=== PATIENT | female | born 2000 | race Hispanic/Latino ===

== ENCOUNTER 2020-06-29 13:45 | Inpatient (IN) | payer OTHER ==
[~2020-06-29] VITALS: Ht 175.3 cm; Wt 52.2 kg
[2020-06-29 14:06] LABS: BASOPHILS # (AUTO) 0.1 (0.0-0.1); BASOPHILS % 0.6 % (0.0-1.0); EOSINOPHILS % 0.1 % (0.0-6.0); HEMATOCRIT 28.4 % (34.2-44.1); HEMOGLOBIN 8.4 g/dL (12.0-16.0); LYMPHOCYTES % 14.6 % (18.0-39.1); MEAN CORPUSCULAR HEMOGLOBIN 18.6 pg (28-32); MEAN CORPUSCULAR HGB CONC 29.6 g/dL (31-35); MEAN CORPUSCULAR VOLUME 62.8 fL (81-99); MONOCYTES # (AUTO) 0.8 (0.2-0.8); MONOCYTES % 5.6 % (4.4-11.3); NEUTROPHILS # (AUTO) 10.9 (2.1-6.9); NEUTROPHILS % 78.7 % (38.7-80.0); PLATELET COUNT 445 x10e3/uL (140-360); RED BLOOD COUNT 4.52 x10e6/uL (3.6-5.1); RED CELL DISTRIBUTION WIDTH 20.2 % (11.7-14.4)
[2020-06-29 14:40] LABS: ALANINE AMINOTRANSFERASE 12 IU/L (0-55); ALBUMIN/GLOBULIN RATIO 0.7 (0.8-2.0); ALKALINE PHOSPHATASE 85 IU/L (40-150); BLOOD UREA NITROGEN 7 mg/dL (7-26); BUN/CREATININE RATIO 12 (6-25); CALCIUM 8.8 mg/dL (8.4-10.2); CARBON DIOXIDE 24 mmol/L (22-29); CHLORIDE 102 mmol/L (98-107); CREATININE, SERUM 0.58 mg/dL (0.57-1.11); EST GLOMERULAR FILTRATION RATE > 60 ML/MIN (60-); GLUCOSE 77 mg/dL (74-118); SODIUM 133 mmol/L (136-145)
[2020-06-29 15:23] LABS: COLOR,URINE YELLOW (YELLOW)
[2020-06-29 15:24] LABS: CLARITY,URINE HAZY (CLEAR); KETONES,URINE 2+ (NEGATIVE); LEUKOCYTE ESTERASE ,URINE MODERATE (NEGATIVE); NITRITE,URINE POSITIVE (NEGATIVE); PROTEIN,URINE DIPSTICK 1+ (NEGATIVE); URINE UROBILINOGEN 0.2 mg/dL (0.2 - 1)
[2020-06-29 15:34] LABS: BACTERIA,URINE MANY /HPF; EPITHELIAL CELLS,URINE FEW /LPF; WBC,URINE (MAN) >50 /HPF (0-5)
[2020-06-29] MEDS: SODIUM CHLORIDE 0.9% 1000ML 1,000 ML IV SCH ×2 (16:48→17:53)
[2020-06-29] MEDS: ACETAMINOPHEN 325 MG TAB PO PRN ×2 (16:48→22:50)
[2020-06-29] MEDS: CEFTRIAXONE SOD 1 GM/NS 50 ML 50 ML IV SCH (16:48)
[2020-06-29 18:18] VITALS: BP 94/71
[2020-06-29 18:23] VITALS: BP 94/71
[2020-06-29 18:35] VITALS: BP 94/71
[2020-06-29 19:00] VITALS: BP 98/62
[2020-06-29 21:00] VITALS: BP 98/62
[2020-06-30] VITALS (12 sets, daily range): BP systolic 85–112; BP diastolic 43–78
[2020-06-30] MEDS: ONDANSETRON HCL INJ 2MG/ML 2ML 2 MG/ML VIAL IV PRN ×3 (01:19→20:25)
[2020-06-30] MEDS ORDERED: SODIUM CHLORIDE 0.9% 500ML 500 ML IV ONE (04:45)
[2020-06-30 06:10] LABS: BASOPHILS % 0.2 % (0.0-1.0); HEMATOCRIT 24.4 % (34.2-44.1); HEMOGLOBIN 7.4 g/dL (12.0-16.0); LYMPHOCYTES # (AUTO) 0.8 (1.0-3.2); LYMPHOCYTES % 5.6 % (18.0-39.1); MEAN CORPUSCULAR HEMOGLOBIN 19.1 pg (28-32); MEAN CORPUSCULAR HGB CONC 30.3 g/dL (31-35); MONOCYTES # (AUTO) 0.9 (0.2-0.8); MONOCYTES % 6.3 % (4.4-11.3); NEUTROPHILS # (AUTO) 12.4 (2.1-6.9); NEUTROPHILS % 87.5 % (38.7-80.0); PLATELET COUNT 381 x10e3/uL (140-360); RED BLOOD COUNT 3.87 x10e6/uL (3.6-5.1); RED CELL DISTRIBUTION WIDTH 19.5 % (11.7-14.4)
[2020-06-30] MEDS: MEPERIDINE HCL INJ 25 MG/ML VIAL IV PRN ×3 (06:12→20:38)
[2020-06-30 06:32] LABS: ALANINE AMINOTRANSFERASE 10 IU/L (0-55); ALBUMIN 2.3 g/dL (3.5-5.0); ALBUMIN/GLOBULIN RATIO 0.6 (0.8-2.0); ALKALINE PHOSPHATASE 82 IU/L (40-150); ANION GAP 11.3 mmol/L (8-16); BLOOD UREA NITROGEN < 5 mg/dL (7-26); CARBON DIOXIDE 19 mmol/L (22-29); CHLORIDE 107 mmol/L (98-107); CREATININE, SERUM 0.56 mg/dL (0.57-1.11); EST GLOMERULAR FILTRATION RATE > 60 ML/MIN (60-); GLUCOSE 83 mg/dL (74-118); POTASSIUM 3.3 mmol/L (3.5-5.1); SODIUM 134 mmol/L (136-145)
[2020-06-30 06:33] LABS: BUN/CREATININE RATIO 9 (6-25)
[2020-06-30] MEDS ORDERED: GENTAMICIN SULFATE 100 MG in SODIUM CHLORIDE 0.9% 100 ML 100 ML IV ONE (07:15)
[2020-06-30] MEDS: SODIUM CHLORIDE 0.9% 1000ML 1,000 ML IV SCH ×12 (10:20→20:30)
[2020-06-30] MEDS: TRAMADOL HCL 50 MG TAB PO PRN (11:20)
[2020-06-30] MEDS ORDERED: POTASSIUM CHLORIDE 10MEQ EA PO ONE (11:30)
[2020-06-30 11:44] LABS: ELLIPTOCYTE, RBC SLIGHT; MICROCYTOSIS MODERATE
[2020-06-30 11:45] LABS: HYPOCHROMASIA SLIGHT
[2020-06-30 11:46] LABS: PLATELET ESTIMATE ADEQUATE; PLATELET MORPHOLOGY COMMENT FEW LARGE; RBC MORPHOLOGY COMMENT ABNORMAL
[2020-06-30] MEDS: GENTAMICIN 80MG/NS 100 ML 100 ML IV SCH ×2 (15:06→21:07)
[2020-06-30] MEDS ORDERED: SODIUM CHLORIDE 0.9% 1000ML 2,000 ML ONE (15:51)
[2020-06-30] MEDS: ACETAMINOPHEN 325 MG TAB PO PRN (16:00)
[2020-06-30] MEDS ORDERED: SODIUM CHLORIDE 0.9% 1000ML 1,000 ML IV SCH (16:30)
[2020-06-30] MEDS: CEFTRIAXONE SOD 1 GM/NS 50 ML 50 ML IV SCH (18:29)
[2020-06-30 21:45] LABS: HIV 1&2 AB SCREEN NON-REACTIVE (NONREACTIVE)
[2020-07-01] VITALS (8 sets, daily range): BP systolic 95–110; BP diastolic 39–90
[2020-07-01] MEDS: SODIUM CHLORIDE 0.9% 1000ML 1,000 ML IV SCH ×2 (00:47→14:42)
[2020-07-01] MEDS: ONDANSETRON HCL INJ 2MG/ML 2ML 2 MG/ML VIAL IV PRN ×5 (00:48→23:40)
[2020-07-01] MEDS: MEPERIDINE HCL INJ 25 MG/ML VIAL IV PRN ×5 (00:48→23:40)
[2020-07-01] MEDS ORDERED: ACETAMINOPHEN 1000 MG/100 ML IV PRN (05:45)
[2020-07-01] MEDS ORDERED: ACETAMINOPHEN 1000 MG/100 ML 100 ML IV ONE (06:37)
[2020-07-01 06:43] LABS: BASOPHILS # (AUTO) 0.1 (0.0-0.1); BASOPHILS % 0.4 % (0.0-1.0); EOSINOPHILS % 0.1 % (0.0-6.0); LYMPHOCYTES # (AUTO) 1.4 (1.0-3.2); LYMPHOCYTES % 10.2 % (18.0-39.1); MEAN CORPUSCULAR HEMOGLOBIN 19.3 pg (28-32); MEAN CORPUSCULAR HGB CONC 30.6 g/dL (31-35); MEAN CORPUSCULAR VOLUME 63.3 fL (81-99); MONOCYTES # (AUTO) 1.1 (0.2-0.8); NEUTROPHILS # (AUTO) 10.8 (2.1-6.9); NEUTROPHILS % 80.9 % (38.7-80.0); PLATELET COUNT 344 x10e3/uL (140-360); RED BLOOD COUNT 3.62 x10e6/uL (3.6-5.1); RED CELL DISTRIBUTION WIDTH 19.9 % (11.7-14.4)
[2020-07-01 06:46] LABS: HEMATOCRIT 22.9 % (34.2-44.1)
[2020-07-01 07:08] LABS: ALANINE AMINOTRANSFERASE 10 IU/L (0-55); ALBUMIN/GLOBULIN RATIO 0.5 (0.8-2.0); ALKALINE PHOSPHATASE 89 IU/L (40-150); ANION GAP 9.5 mmol/L (8-16); BLOOD UREA NITROGEN < 5 mg/dL (7-26); CALCIUM 7.9 mg/dL (8.4-10.2); CARBON DIOXIDE 18 mmol/L (22-29); CHLORIDE 105 mmol/L (98-107); CREATININE, SERUM 0.54 mg/dL (0.57-1.11); EST GLOMERULAR FILTRATION RATE > 60 ML/MIN (60-); GLUCOSE 81 mg/dL (74-118); POTASSIUM 3.5 mmol/L (3.5-5.1); SODIUM 129 mmol/L (136-145)
[2020-07-01 07:09] LABS: BUN/CREATININE RATIO 9 (6-25)
[2020-07-01] MEDS: GENTAMICIN 80MG/NS 100 ML 100 ML IV SCH ×3 (07:16→20:52)
[2020-07-01] MEDS: CEFTRIAXONE SOD 1 GM/NS 50 ML 50 ML IV SCH (16:51)
[2020-07-02] VITALS (7 sets, daily range): BP systolic 91–136; BP diastolic 58–81
[2020-07-02] MEDS: SODIUM CHLORIDE 0.9% 1000ML 1,000 ML IV SCH ×4 (03:35→21:00)
[2020-07-02] MEDS: GENTAMICIN 80MG/NS 100 ML 100 ML IV SCH (06:31)
[2020-07-02 08:34] LABS: BASOPHILS % 0.6 % (0.0-1.0); EOSINOPHILS % 0.6 % (0.0-6.0); HEMATOCRIT 23.4 % (34.2-44.1); LYMPHOCYTES # (AUTO) 1.5 (1.0-3.2); LYMPHOCYTES % 22.4 % (18.0-39.1); MEAN CORPUSCULAR HEMOGLOBIN 18.6 pg (28-32); MEAN CORPUSCULAR HGB CONC 29.5 g/dL (31-35); MEAN CORPUSCULAR VOLUME 63.2 fL (81-99); MONOCYTES # (AUTO) 0.8 (0.2-0.8); MONOCYTES % 11.5 % (4.4-11.3); NEUTROPHILS # (AUTO) 4.5 (2.1-6.9); NEUTROPHILS % 64.6 % (38.7-80.0); PLATELET COUNT 321 x10e3/uL (140-360); RED CELL DISTRIBUTION WIDTH 20.3 % (11.7-14.4)
[2020-07-02 08:37] LABS: HEMOGLOBIN 6.9 g/dL (12.0-16.0)
[2020-07-02 08:59] LABS: ANION GAP 10.6 mmol/L (8-16); BLOOD UREA NITROGEN < 5 mg/dL (7-26); CALCIUM 8.1 mg/dL (8.4-10.2); CARBON DIOXIDE 20 mmol/L (22-29); CHLORIDE 105 mmol/L (98-107); CREATININE, SERUM 0.46 mg/dL (0.57-1.11); EST GLOMERULAR FILTRATION RATE > 60 ML/MIN (60-); GLUCOSE 73 mg/dL (74-118); POTASSIUM 3.6 mmol/L (3.5-5.1); SODIUM 132 mmol/L (136-145)
[2020-07-02 09:02] LABS: BUN/CREATININE RATIO 11 (6-25)
[2020-07-02] MEDS: ONDANSETRON HCL INJ 2MG/ML 2ML 2 MG/ML VIAL IV PRN ×2 (09:35→15:50)
[2020-07-02] MEDS: MEPERIDINE HCL INJ 25 MG/ML VIAL IV PRN ×3 (09:35→21:21)
[2020-07-02] MEDS ORDERED: PREN/MULTIVIT/MIN/FOL AC/IRON 1 TAB PO SCH (11:00)
[2020-07-02] MEDS: MULTIVITAMINS/MINERALS TAB PO SCH (11:49)
[2020-07-02] MEDS: IRON-VITAMIN-MINERAL CAPSULE PO SCH (11:49)
[2020-07-02 12:46] LABS: HYPOCHROMASIA MODERATE; OVALOCYTES FEW; POIKILOCYTOSIS SLIGHT
[2020-07-02 12:47] LABS: PLATELET ESTIMATE ADEQUATE; PLATELET MORPHOLOGY COMMENT NORMAL
[2020-07-02] MEDS: MEROPENEM 1GM 100 ML IV SCH ×2 (15:30→22:47)
[2020-07-02] MEDS: TRAMADOL HCL 50 MG TAB PO PRN (18:05)
[2020-07-03] VITALS (7 sets, daily range): BP systolic 91–108; BP diastolic 48–78
[2020-07-03] MEDS: SODIUM CHLORIDE 0.9% 1000ML 1,000 ML IV SCH ×6 (00:15→22:10)
[2020-07-03] MEDS: TRAMADOL HCL 50 MG TAB PO PRN ×2 (04:19→19:25)
[2020-07-03 06:00] LABS: BASOPHILS % 0.4 % (0.0-1.0); EOSINOPHILS # (AUTO) 0.1 (0.0-0.4); EOSINOPHILS % 1.2 % (0.0-6.0); HEMATOCRIT 23.5 % (34.2-44.1); LYMPHOCYTES # (AUTO) 1.7 (1.0-3.2); LYMPHOCYTES % 33.2 % (18.0-39.1); MEAN CORPUSCULAR HEMOGLOBIN 19.1 pg (28-32); MEAN CORPUSCULAR HGB CONC 29.8 g/dL (31-35); MONOCYTES # (AUTO) 0.6 (0.2-0.8); MONOCYTES % 11.7 % (4.4-11.3); NEUTROPHILS # (AUTO) 2.7 (2.1-6.9); NEUTROPHILS % 53.3 % (38.7-80.0); PLATELET COUNT 279 x10e3/uL (140-360); RED BLOOD COUNT 3.67 x10e6/uL (3.6-5.1); RED CELL DISTRIBUTION WIDTH 20.7 % (11.7-14.4)
[2020-07-03] MEDS: MEROPENEM 1GM 100 ML IV SCH ×3 (06:13→22:10)
[2020-07-03] MEDS: MEPERIDINE HCL INJ 25 MG/ML VIAL IV PRN ×4 (06:40→20:46)
[2020-07-03 06:43] LABS: ALANINE AMINOTRANSFERASE 13 IU/L (0-55); ALBUMIN 1.9 g/dL (3.5-5.0); ALBUMIN/GLOBULIN RATIO 0.5 (0.8-2.0); ALKALINE PHOSPHATASE 103 IU/L (40-150); ANION GAP 9.3 mmol/L (8-16); BLOOD UREA NITROGEN < 5 mg/dL (7-26); CARBON DIOXIDE 23 mmol/L (22-29); CHLORIDE 107 mmol/L (98-107); CREATININE, SERUM 0.47 mg/dL (0.57-1.11); EST GLOMERULAR FILTRATION RATE > 60 ML/MIN (60-); GLUCOSE 79 mg/dL (74-118); MAGNESIUM 1.4 MG/DL (1.3-2.1); POTASSIUM 3.3 mmol/L (3.5-5.1); SODIUM 136 mmol/L (136-145)
[2020-07-03 06:44] LABS: BUN/CREATININE RATIO 11 (6-25)
[2020-07-03] MEDS: IRON-VITAMIN-MINERAL CAPSULE PO SCH (10:10)
[2020-07-03] MEDS: MULTIVITAMINS/MINERALS TAB PO SCH (10:10)
[2020-07-03 10:42] LABS: ANISOCYTOSIS SLIGHT; HYPOCHROMASIA SLIGHT; MICROCYTOSIS SLIGHT; PLATELET ESTIMATE ADEQUATE; PLATELET MORPHOLOGY COMMENT NORMAL; RBC MORPHOLOGY COMMENT NORMAL
[2020-07-03] MEDS: ONDANSETRON HCL INJ 2MG/ML 2ML 2 MG/ML VIAL IV PRN ×3 (10:43→20:45)
[2020-07-03] MEDS: IRON SUCROSE 100 MG in SODIUM CHLORIDE 0.9% 100 ML 100 ML IV SCH (16:31)
[2020-07-03] MEDS: SENNA-S TABLET PO SCH (16:34)
[2020-07-04] VITALS (8 sets, daily range): BP systolic 86–128; BP diastolic 48–65
[2020-07-04] MEDS: MEPERIDINE HCL INJ 25 MG/ML VIAL IV PRN ×4 (02:32→21:27)
[2020-07-04] MEDS: ONDANSETRON HCL INJ 2MG/ML 2ML 2 MG/ML VIAL IV PRN ×4 (02:32→21:28)
[2020-07-04 05:22] LABS: BASOPHILS % 0.4 % (0.0-1.0); EOSINOPHILS % 0.8 % (0.0-6.0); LYMPHOCYTES # (AUTO) 1.7 (1.0-3.2); LYMPHOCYTES % 35.6 % (18.0-39.1); MEAN CORPUSCULAR HGB CONC 30.4 g/dL (31-35); MEAN CORPUSCULAR VOLUME 62.6 fL (81-99); MONOCYTES # (AUTO) 0.5 (0.2-0.8); MONOCYTES % 10.4 % (4.4-11.3); NEUTROPHILS # (AUTO) 2.5 (2.1-6.9); NEUTROPHILS % 52.4 % (38.7-80.0); PLATELET COUNT 365 x10e3/uL (140-360); RED BLOOD COUNT 3.58 x10e6/uL (3.6-5.1); RED CELL DISTRIBUTION WIDTH 20.5 % (11.7-14.4)
[2020-07-04] MEDS: MEROPENEM 1GM 100 ML IV SCH ×3 (05:27→21:28)
[2020-07-04 05:40] LABS: HEMATOCRIT 22.4 % (34.2-44.1)
[2020-07-04 05:43] LABS: HEMOGLOBIN 6.8 g/dL (12.0-16.0)
[2020-07-04 06:06] LABS: ALANINE AMINOTRANSFERASE 23 IU/L (0-55); ALBUMIN 1.9 g/dL (3.5-5.0); ALBUMIN/GLOBULIN RATIO 0.5 (0.8-2.0); ALKALINE PHOSPHATASE 125 IU/L (40-150); ANION GAP 10.5 mmol/L (8-16); BLOOD UREA NITROGEN < 5 mg/dL (7-26); CALCIUM 8.1 mg/dL (8.4-10.2); CARBON DIOXIDE 22 mmol/L (22-29); CHLORIDE 103 mmol/L (98-107); CREATININE, SERUM 0.46 mg/dL (0.57-1.11); EST GLOMERULAR FILTRATION RATE > 60 ML/MIN (60-); GLUCOSE 82 mg/dL (74-118); MAGNESIUM 1.6 MG/DL (1.3-2.1); POTASSIUM 3.5 mmol/L (3.5-5.1); SODIUM 132 mmol/L (136-145)
[2020-07-04 06:07] LABS: BUN/CREATININE RATIO 11 (6-25)
[2020-07-04] MEDS: SODIUM CHLORIDE 0.9% 1000ML 1,000 ML IV SCH ×3 (07:06→21:28)
[2020-07-04] MEDS: MULTIVITAMINS/MINERALS TAB PO SCH (08:45)
[2020-07-04] MEDS: SENNA-S TABLET PO SCH ×2 (08:45→17:00)
[2020-07-04] MEDS: IRON-VITAMIN-MINERAL CAPSULE PO SCH (08:45)
[2020-07-04] MEDS: IRON SUCROSE 100 MG in SODIUM CHLORIDE 0.9% 100 ML 100 ML IV SCH (12:49)
[2020-07-05] VITALS (8 sets, daily range): BP systolic 81–101; BP diastolic 48–73
[2020-07-05] MEDS: SODIUM CHLORIDE 0.9% 1000ML 1,000 ML IV SCH ×2 (05:06→15:44)
[2020-07-05] MEDS: MEROPENEM 1GM 100 ML IV SCH (05:06)
[2020-07-05] MEDS: ONDANSETRON HCL INJ 2MG/ML 2ML 2 MG/ML VIAL IV PRN ×2 (05:07→21:09)
[2020-07-05] MEDS: OXYCODONE/ACETAMINOPHEN 5-325 1 EACH TABLET PO PRN ×2 (05:07→16:53)
[2020-07-05 06:27] LABS: BASOPHILS % 0.7 % (0.0-1.0); EOSINOPHILS % 0.7 % (0.0-6.0); HEMATOCRIT 25.2 % (34.2-44.1); HEMOGLOBIN 7.5 g/dL (12.0-16.0); LYMPHOCYTES # (AUTO) 1.8 (1.0-3.2); LYMPHOCYTES % 31.8 % (18.0-39.1); MEAN CORPUSCULAR HEMOGLOBIN 18.8 pg (28-32); MEAN CORPUSCULAR HGB CONC 29.8 g/dL (31-35); MEAN CORPUSCULAR VOLUME 63.2 fL (81-99); MONOCYTES # (AUTO) 0.4 (0.2-0.8); MONOCYTES % 7.6 % (4.4-11.3); NEUTROPHILS # (AUTO) 3.3 (2.1-6.9); PLATELET COUNT 422 x10e3/uL (140-360); RED BLOOD COUNT 3.99 x10e6/uL (3.6-5.1); RED CELL DISTRIBUTION WIDTH 20.4 % (11.7-14.4)
[2020-07-05 06:49] LABS: ALANINE AMINOTRANSFERASE 22 IU/L (0-55); ALBUMIN 2.2 g/dL (3.5-5.0); ALBUMIN/GLOBULIN RATIO 0.5 (0.8-2.0); ALKALINE PHOSPHATASE 141 IU/L (40-150); ANION GAP 12.6 mmol/L (8-16); CALCIUM 8.4 mg/dL (8.4-10.2); CARBON DIOXIDE 22 mmol/L (22-29); CHLORIDE 106 mmol/L (98-107); GLUCOSE 74 mg/dL (74-118); POTASSIUM 3.6 mmol/L (3.5-5.1); SODIUM 137 mmol/L (136-145)
[2020-07-05 07:01] LABS: BLOOD UREA NITROGEN < 5 mg/dL (7-26); BUN/CREATININE RATIO 10 (6-25); CREATININE, SERUM 0.49 mg/dL (0.57-1.11); EST GLOMERULAR FILTRATION RATE > 60 ML/MIN (60-)
[2020-07-05] MEDS: SENNA-S TABLET PO SCH ×2 (08:46→18:06)
[2020-07-05] MEDS: IRON-VITAMIN-MINERAL CAPSULE PO SCH (08:46)
[2020-07-05] MEDS: MULTIVITAMINS/MINERALS TAB PO SCH (08:46)
[2020-07-05] MEDS ORDERED: ACETAMINOPHEN 325 MG TAB PO PRN (13:45)
[2020-07-05] MEDS: IRON SUCROSE 100 MG in SODIUM CHLORIDE 0.9% 100 ML 100 ML IV SCH (15:44)
[2020-07-05] MEDS: CIPROFLOXACIN 500 MG TAB PO SCH (18:06)
[2020-07-06] VITALS: BP 91/47
[2020-07-06] MEDS: SODIUM CHLORIDE 0.9% 1000ML 1,000 ML IV SCH ×2 (01:57→08:15)
[2020-07-06 04:00] VITALS: BP 97/53
[2020-07-06 07:42] VITALS: BP 85/50
[2020-07-06 08:17] VITALS: BP 85/50
[2020-07-06] MEDS: CIPROFLOXACIN 500 MG TAB PO SCH (08:36)
[2020-07-06] MEDS: IRON-VITAMIN-MINERAL CAPSULE PO SCH (08:36)
[2020-07-06] MEDS: MULTIVITAMINS/MINERALS TAB PO SCH (08:36)
[2020-07-06] MEDS: SENNA-S TABLET PO SCH (08:36)
[2020-07-06] MEDS: ONDANSETRON HCL INJ 2MG/ML 2ML 2 MG/ML VIAL IV PRN (08:58)
== END 2020-07-06 10:53 | disposition home or self-care (01) | DRG 831 ==
LOC: ER 13:53 → ERHOLD 16:41 → MED/SURG3 17:29
PROVIDERS: ADMIT Internal Medicine; ATTEND Internal Medicine
DX: O23.41 Unspecified infection of urinary tract in pregnancy, first trimester (principal); A41.89 Other specified sepsis; E87.1 Hypo-osmolality and hyponatremia; Z3A.01 Less than 8 weeks gestation of pregnancy; Z3A.08 8 weeks gestation of pregnancy; B96.20 Unspecified Escherichia coli [E. coli] as the cause of diseases classified elsewhere; O99.011 Anemia complicating pregnancy, first trimester; D50.9 Iron deficiency anemia, unspecified; Z20.828 Contact with and (suspected) exposure to other viral communicable diseases
CPT/HCPCS: 36415; 72195; 74181; 76815; 80048; 80053; 81001; 81025; 83605; 83735; 85025; 86592; 87040; 87086; 87186; 87390; 87536; 99284; G0433; G0435; J0696; J1580; J1756; J2175; J2405; J7030; J7040; U0002

== ENCOUNTER 2020-08-19 14:54 | Emergency (ER) | payer OTHER ==
[~2020-08-19] VITALS: Ht 175.3 cm; Wt 52.2 kg
[2020-08-19 15:51] LABS: CLARITY,URINE HAZY (CLEAR); COLOR,URINE YELLOW (YELLOW); KETONES,URINE NEGATIVE (NEGATIVE); LEUKOCYTE ESTERASE ,URINE NEGATIVE (NEGATIVE); NITRITE,URINE NEGATIVE (NEGATIVE); PROTEIN,URINE DIPSTICK NEGATIVE (NEGATIVE); URINE UROBILINOGEN 0.2 mg/dL (0.2 - 1)
[2020-08-19 15:52] LABS: AMORPHOUS SEDIMENT,URINE FEW (FEW); BACTERIA,URINE FEW /HPF; EPITHELIAL CELLS,URINE FEW /LPF; RBC,URINE 0-5 /HPF (0-5); WBC,URINE (MAN) 0-5 /HPF (0-5)
== END 2020-08-19 19:35 | disposition home or self-care (01) ==
LOC: ER 15:06
DX: O26.892 Other specified pregnancy related conditions, second trimester (principal); N89.8 Other specified noninflammatory disorders of vagina; R10.2 Pelvic and perineal pain; Z86.19 Personal history of other infectious and parasitic diseases
CPT/HCPCS: 76805; 81001; 87086; 99283

== ENCOUNTER 2020-11-23 18:10 | Emergency (ER) | payer OTHER ==
[~2020-11-23] VITALS: Ht 149.9 cm; Wt 52.2 kg
[2020-11-23] MEDS ORDERED: ASPIRIN 81 MG CHEW TAB PO ONE (19:15)
[2020-11-23 19:39] LABS: BASOPHILS % 0.4 % (0.0-1.0); EOSINOPHILS % 0.3 % (0.0-6.0); HEMATOCRIT 30.7 % (34.2-44.1); LYMPHOCYTES # (AUTO) 1.7 (1.0-3.2); LYMPHOCYTES % 17.4 % (18.0-39.1); MEAN CORPUSCULAR HEMOGLOBIN 20.6 pg (28-32); MEAN CORPUSCULAR HGB CONC 29.3 g/dL (31-35); MEAN CORPUSCULAR VOLUME 70.4 fL (81-99); MONOCYTES # (AUTO) 0.5 (0.2-0.8); MONOCYTES % 4.7 % (4.4-11.3); NEUTROPHILS # (AUTO) 7.4 (2.1-6.9); NEUTROPHILS % 76.6 % (38.7-80.0); PLATELET COUNT 504 x10e3/uL (140-360); RED BLOOD COUNT 4.36 x10e6/uL (3.6-5.1); RED CELL DISTRIBUTION WIDTH 20.7 % (11.7-14.4)
[2020-11-23 19:58] LABS: ALANINE AMINOTRANSFERASE 21 IU/L (0-55); ALBUMIN 3.2 g/dL (3.5-5.0); ALBUMIN/GLOBULIN RATIO 0.6 (0.8-2.0); ALKALINE PHOSPHATASE 176 IU/L (40-150); ANION GAP 17.3 mmol/L (8-16); BLOOD UREA NITROGEN 10 mg/dL (7-26); BUN/CREATININE RATIO 14 (6-25); CALCIUM 9.6 mg/dL (8.4-10.2); CARBON DIOXIDE 21 mmol/L (22-29); CHLORIDE 105 mmol/L (98-107); CREATINE KINASE 47 IU/L (29-168); CREATININE, SERUM 0.73 mg/dL (0.57-1.11); EST GLOMERULAR FILTRATION RATE > 60 ML/MIN (60-); GLUCOSE 91 mg/dL (74-118); POTASSIUM 4.3 mmol/L (3.5-5.1); SODIUM 139 mmol/L (136-145)
[2020-11-23] MEDS ORDERED: COLACE100 MG PO (20:49)
[2020-11-23] MEDS ORDERED: FERROUS SULFAT325 M1 PO (20:49)
[2020-11-23] MEDS ORDERED: ONDANSETRON HCL INJ 2MG/ML 2ML 2 MG/ML VIAL IV STA (21:45)
[2020-11-23] MEDS ORDERED: ONDANSETRON HCL INJ 2MG/ML 2ML 2 MG/ML VIAL ONE (21:56)
[2020-11-23] MEDS ORDERED: ZOFRAN4 MG SL (22:19)
[2020-11-23 23:12] VITALS: BP 101/62
== END 2020-11-23 22:36 | disposition home or self-care (01) ==
LOC: ER 18:30
DX: D64.9 Anemia, unspecified (principal)
CPT/HCPCS: 36415; 80053; 82550; 82553; 84484; 85025; 86850; 86900; 99284; J2405

== ENCOUNTER 2021-02-04 20:27 | Emergency (ER) | payer OTHER ==
[~2021-02-04] VITALS: Ht 149.9 cm; Wt 55.3 kg
[~2021-02-04 20:27] MED LIST: COLACE100 MG PO; FERROUS SULFAT325 M1 PO; ZOFRAN4 MG SL
[2021-02-04 21:11] LABS: BASOPHILS # (AUTO) 0.1 (0.0-0.1); BASOPHILS % 0.9 % (0.0-1.0); EOSINOPHILS # (AUTO) 0.1 (0.0-0.4); HEMATOCRIT 29.3 % (34.2-44.1); HEMOGLOBIN 8.3 g/dL (12.0-16.0); LYMPHOCYTES # (AUTO) 2.5 (1.0-3.2); LYMPHOCYTES % 45.2 % (18.0-39.1); MEAN CORPUSCULAR HEMOGLOBIN 19.1 pg (28-32); MEAN CORPUSCULAR HGB CONC 28.3 g/dL (31-35); MEAN CORPUSCULAR VOLUME 67.4 fL (81-99); MONOCYTES # (AUTO) 0.4 (0.2-0.8); MONOCYTES % 7.9 % (4.4-11.3); NEUTROPHILS # (AUTO) 2.5 (2.1-6.9); NEUTROPHILS % 43.8 % (38.7-80.0); PLATELET COUNT 358 x10e3/uL (140-360); RED BLOOD COUNT 4.35 x10e6/uL (3.6-5.1); RED CELL DISTRIBUTION WIDTH 17.5 % (11.7-14.4)
[2021-02-04 21:26] LABS: ALBUMIN 3.6 g/dL (3.5-5.0); ALBUMIN/GLOBULIN RATIO 0.9 (0.8-2.0); ANION GAP 10.6 mmol/L (8-16); CALCIUM 8.9 mg/dL (8.4-10.2); CREATININE, SERUM 0.83 mg/dL (0.57-1.11); POTASSIUM 3.6 mmol/L (3.5-5.1)
[2021-02-04 21:27] LABS: CLARITY,URINE CLEAR (CLEAR); COLOR,URINE YELLOW (YELLOW); KETONES,URINE NEGATIVE (NEGATIVE); LEUKOCYTE ESTERASE ,URINE NEGATIVE (NEGATIVE); NITRITE,URINE NEGATIVE (NEGATIVE); PROTEIN,URINE DIPSTICK NEGATIVE (NEGATIVE)
[2021-02-04 21:28] LABS: URINE UROBILINOGEN 0.2 mg/dL (0.2 - 1)
[2021-02-04 21:36] LABS: BACTERIA,URINE FEW /HPF; EPITHELIAL CELLS,URINE MODERATE /LPF; RBC,URINE 0-5 /HPF (0-5); WBC,URINE (MAN) 0-5 /HPF (0-5)
== END 2021-02-04 21:57 | disposition home or self-care (01) ==
LOC: ER 20:44
DX: R10.31 Right lower quadrant pain (principal); N94.6 Dysmenorrhea, unspecified; D64.9 Anemia, unspecified
CPT/HCPCS: 36415; 80053; 81001; 81025; 85025; 99284

== ENCOUNTER 2021-04-04 10:21 | Emergency (ER) | payer OTHER ==
[~2021-04-04] VITALS: Ht 149.9 cm; Wt 55.3 kg
[2021-04-04 11:24] LABS: CLARITY,URINE CLEAR (CLEAR); COLOR,URINE YELLOW (YELLOW); KETONES,URINE NEGATIVE (NEGATIVE); LEUKOCYTE ESTERASE ,URINE NEGATIVE (NEGATIVE); NITRITE,URINE NEGATIVE (NEGATIVE); PROTEIN,URINE DIPSTICK NEGATIVE (NEGATIVE)
[2021-04-04 11:25] LABS: URINE UROBILINOGEN 0.2 mg/dL (0.2 - 1)
[2021-04-04 11:36] LABS: BASOPHILS # (AUTO) 0.1 (0.0-0.1); BASOPHILS % 0.5 % (0.0-1.0); EOSINOPHILS % 0.2 % (0.0-6.0); HEMATOCRIT 34.3 % (34.2-44.1); HEMOGLOBIN 9.6 g/dL (12.0-16.0); LYMPHOCYTES # (AUTO) 1.9 (1.0-3.2); LYMPHOCYTES % 10.7 % (18.0-39.1); MEAN CORPUSCULAR HEMOGLOBIN 18.5 pg (28-32); MEAN CORPUSCULAR VOLUME 66.1 fL (81-99); MONOCYTES # (AUTO) 0.7 (0.2-0.8); PLATELET COUNT 428 x10e3/uL (140-360); RED BLOOD COUNT 5.19 x10e6/uL (3.6-5.1); RED CELL DISTRIBUTION WIDTH 18.3 % (11.7-14.4)
[2021-04-04 11:56] LABS: ALBUMIN 3.7 g/dL (3.5-5.0); ALBUMIN/GLOBULIN RATIO 0.9 (0.8-2.0); CALCIUM 8.8 mg/dL (8.4-10.2); CREATININE, SERUM 0.66 mg/dL (0.57-1.11)
[2021-04-04 11:57] LABS: BACTERIA,URINE FEW /HPF; EPITHELIAL CELLS,URINE FEW /LPF; RBC,URINE 0-5 /HPF (0-5); WBC,URINE (MAN) 0-5 /HPF (0-5)
[2021-04-04] MEDS ORDERED: CEFTRIAXONE 500 MG VIAL IM ONE (13:00)
[2021-04-04] MEDS ORDERED: SODIUM CHLORIDE 0.9% 1000ML 1,000 ML IV SCH (13:00)
[2021-04-04] MEDS ORDERED: DOXYCYCLINE HYCLATE TABLET 100 MG TAB PO ONE (13:00)
[2021-04-04] MEDS ORDERED: ONDANSETRON ODT4 MG PO (15:56)
[2021-04-04] MEDS ORDERED: DOXYCYCLINE HY100 MG PO (15:56)
[2021-04-04] MEDS ORDERED: FLAGYL500 MG PO (15:56)
== END 2021-04-04 16:27 | disposition home or self-care (01) ==
LOC: ER 10:30
DX: R10.2 Pelvic and perineal pain (principal); N73.9 Female pelvic inflammatory disease, unspecified; D64.9 Anemia, unspecified; B00.9 Herpesviral infection, unspecified
CPT/HCPCS: 36415; 76830; 76856; 80053; 81001; 81025; 83605; 85025; 87040; 87210; 87491; 87591; 99284; J0696; J7030

== ENCOUNTER → 2021-04-26 | Emergency (ER) | payer OTHER ==
[~2021-04-26] MED LIST changes: +DOXYCYCLINE HY100 MG PO; +FLAGYL500 MG PO; +ONDANSETRON ODT4 MG PO
== END | disposition left against medical advice (07) ==
LOC: ER 10:15
DX: R53.1 Weakness (principal)

== ENCOUNTER 2021-05-24 20:11 | Emergency (ER) | payer OTHER ==
[~2021-05-24] VITALS: Ht 149.9 cm; Wt 55.3 kg
[2021-05-24] MEDS ORDERED: KETOROLAC TROMETHAMINE 30 MG/ML VIAL IV STA (20:21)
[2021-05-24] MEDS ORDERED: CEFTRIAXONE 500 MG VIAL IV ONE (20:30)
[2021-05-24] MEDS ORDERED: CEFTRIAXONE 1 GM VIAL IM ONE (20:30)
[2021-05-24] MEDS ORDERED: METRONIDAZOLE 500 MG TAB PO ONE (20:30)
[2021-05-24] MEDS ORDERED: ACETAMINOPHEN 325 MG TAB PO ONE (20:30)
[2021-05-24] MEDS ORDERED: DOXYCYCLINE 100MG/NS 100ML 100 ML IV ONE (20:30)
[2021-05-24] MEDS ORDERED: ONDANSETRON HCL 4 MG ORAL DISINTEGRATING TAB PO ONE (20:30)
[2021-05-24] MEDS ORDERED: ONDANSETRON HCL INJ 2MG/ML 2ML 2 MG/ML VIAL ONE (20:35)
[2021-05-24] MEDS ORDERED: ACETAMINOPHEN 325 MG TAB ONE (20:35)
[2021-05-24] MEDS ORDERED: SODIUM CHLORIDE 0.9% 1000ML 1,000 ML ONE (20:35)
[2021-05-24 20:47] LABS: BASOPHILS # (AUTO) 0.1 (0.0-0.1); BASOPHILS % 0.5 % (0.0-1.0); EOSINOPHILS % 0.2 % (0.0-6.0); HEMATOCRIT 30.6 % (34.2-44.1); HEMOGLOBIN 8.8 g/dL (12.0-16.0); LYMPHOCYTES # (AUTO) 1.2 (1.0-3.2); LYMPHOCYTES % 12.4 % (18.0-39.1); MEAN CORPUSCULAR HEMOGLOBIN 18.9 pg (28-32); MEAN CORPUSCULAR HGB CONC 28.8 g/dL (31-35); MEAN CORPUSCULAR VOLUME 65.8 fL (81-99); MONOCYTES # (AUTO) 0.6 (0.2-0.8); NEUTROPHILS # (AUTO) 7.7 (2.1-6.9); NEUTROPHILS % 80.5 % (38.7-80.0); PLATELET COUNT 380 x10e3/uL (140-360); RED BLOOD COUNT 4.65 x10e6/uL (3.6-5.1); RED CELL DISTRIBUTION WIDTH 19.6 % (11.7-14.4)
[2021-05-24] MEDS ORDERED: ONDANSETRON HCL INJ 2MG/ML 2ML 2 MG/ML VIAL IV STA (20:50)
[2021-05-24 20:51] LABS: CLARITY,URINE CLEAR (CLEAR); COLOR,URINE YELLOW (YELLOW); LEUKOCYTE ESTERASE ,URINE NEGATIVE (NEGATIVE); NITRITE,URINE NEGATIVE (NEGATIVE); PROTEIN,URINE DIPSTICK NEGATIVE (NEGATIVE)
[2021-05-24 20:52] LABS: KETONES,URINE NEGATIVE (NEGATIVE); URINE UROBILINOGEN 0.2 mg/dL (0.2 - 1)
[2021-05-24 21:00] LABS: BACTERIA,URINE FEW /HPF; EPITHELIAL CELLS,URINE MODERATE /LPF; RBC,URINE 0-5 /HPF (0-5)
[2021-05-24] MEDS ORDERED: CEFTRIAXONE 1 GM in SODIUM CHLORIDE 0.9% 50ML 50 ML IV ONE (21:00)
[2021-05-24] MEDS ORDERED: CEFTRIAXONE 1 GM VIAL ONE (21:00)
[2021-05-24] MEDS ORDERED: SODIUM CHLORIDE 0.9% 1000ML 1,000 ML IV ONE (21:00)
[2021-05-24 21:09] LABS: ALBUMIN/GLOBULIN RATIO 0.9 (0.8-2.0); ANION GAP 16.8 mmol/L (8-16); CALCIUM 8.9 mg/dL (8.4-10.2); CREATININE, SERUM 0.74 mg/dL (0.57-1.11); POTASSIUM 3.8 mmol/L (3.5-5.1)
[2021-05-24 21:41] LABS: HYPOCHROMASIA MARKED; MICROCYTOSIS MARKED; PLATELET ESTIMATE ADEQUATE; PLATELET MORPHOLOGY COMMENT NORMAL
[2021-05-24] MEDS ORDERED: DOXYCYCLINE HY100 MG PO (23:28)
[2021-05-24] MEDS ORDERED: ONDANSETRON ODT4 MG PO (23:30)
[2021-05-24 23:34] VITALS: BP 93/62
[2021-05-25] MEDS ORDERED: IOPAMIDOL 370 MG/ML 200 ML INFUS..BTL INJ ONE (05:43)
[2021-05-25] MEDS ORDERED: SODIUM CHLORIDE 0.9% 50ML 50 ML ONE (05:43)
== END 2021-05-24 23:38 | disposition home or self-care (01) ==
LOC: ER 20:22
DX: R10.31 Right lower quadrant pain (principal); N73.0 Acute parametritis and pelvic cellulitis; R50.9 Fever, unspecified
CPT/HCPCS: 36415; 74177; 80053; 81001; 83605; 84702; 85025; 87040; 87086; 99284; J0696; J1885; J2405; J7030; Q9967

== ENCOUNTER 2021-06-25 21:27 | Emergency (ER) | payer OTHER ==
[~2021-06-25] VITALS: Ht 149.9 cm; Wt 55.3 kg
== END 2021-06-25 22:35 | disposition home or self-care (01) ==
LOC: ER 21:31
DX: O26.91 Pregnancy related conditions, unspecified, first trimester (principal); S63.501A Unspecified sprain of right wrist, initial encounter; Y93.83 Activity, rough housing and horseplay; Y92.008 Other place in unspecified non-institutional (private) residence as the place of occurrence of the external cause; D64.9 Anemia, unspecified
CPT/HCPCS: 99283

== ENCOUNTER 2023-01-07 20:26 | Emergency (ER) | payer OTHER ==
[~2023-01-07] VITALS: Ht 149.9 cm; Wt 55.3 kg
[2023-01-07] MEDS ORDERED: FAMOTIDINE 20 MG/2 ML VIAL IV STA (20:55)
[2023-01-07] MEDS ORDERED: ONDANSETRON HCL INJ 2MG/ML 2ML 2 MG/ML VIAL IV STA (20:55)
[2023-01-07] MEDS ORDERED: SUCRALFATE 1 GM TAB PO STA (20:55)
[2023-01-07] MEDS ORDERED: MAGNESIUM/ALUMINUM/SIMETHICONE 30 ML UDC PO ONE (21:00)
[2023-01-07] MEDS ORDERED: SODIUM CHLORIDE 0.9% 1000ML 1,000 ML IV ONE (21:00)
[2023-01-07 21:38] LABS: CLARITY,URINE SL CLOUDY (CLEAR); COLOR,URINE YELLOW (YELLOW); KETONES,URINE NEGATIVE (NEGATIVE); LEUKOCYTE ESTERASE ,URINE NEGATIVE (NEGATIVE); NITRITE,URINE NEGATIVE (NEGATIVE); PROTEIN,URINE DIPSTICK NEGATIVE (NEGATIVE); URINE UROBILINOGEN 0.2 mg/dL (0.2 - 1)
[2023-01-07 21:49] LABS: AMORPHOUS SEDIMENT,URINE FEW (FEW); BACTERIA,URINE FEW /HPF; EPITHELIAL CELLS,URINE FEW /LPF; RBC,URINE 0-5 /HPF (0-5); WBC,URINE (MAN) 0-5 /HPF (0-5)
[2023-01-07 21:50] LABS: BASOPHILS # (AUTO) 0.1 (0.0-0.1); BASOPHILS % 0.7 % (0.0-1.0); EOSINOPHILS # (AUTO) 0.1 (0.0-0.4); EOSINOPHILS % 1.5 % (0.0-6.0); HEMATOCRIT 39.4 % (34.2-44.1); HEMOGLOBIN 12.8 g/dL (12.0-16.0); LYMPHOCYTES % 35.3 % (18.0-39.1); MEAN CORPUSCULAR HEMOGLOBIN 26.4 pg (28-32); MEAN CORPUSCULAR HGB CONC 32.5 g/dL (31-35); MEAN CORPUSCULAR VOLUME 81.2 fL (81-99); MONOCYTES # (AUTO) 0.6 (0.2-0.8); MONOCYTES % 7.5 % (4.4-11.3); NEUTROPHILS # (AUTO) 4.7 (2.1-6.9); NEUTROPHILS % 54.8 % (38.7-80.0); PLATELET COUNT 306 x10e3/uL (140-360); RED BLOOD COUNT 4.85 x10e6/uL (3.6-5.1); RED CELL DISTRIBUTION WIDTH 13.7 % (11.7-14.4)
[2023-01-07 21:55] LABS: ANION GAP 11.1 mmol/L (8-16); CALCIUM 8.9 mg/dL (8.4-10.2); CREATININE, SERUM 0.74 mg/dL (0.57-1.11); POTASSIUM 4.1 mmol/L (3.5-5.1)
[2023-01-07 22:02] LABS: ALBUMIN 3.6 g/dL (3.5-5.0); ALBUMIN/GLOBULIN RATIO 0.9 (0.8-2.0)
[2023-01-07] MEDS ORDERED: PEPCID20 MG PO (22:16)
[2023-01-07 22:23] VITALS: BP 111/86; PULSE 77; RESP 19; TEMP 98.2; O2SAT 99
== END 2023-01-07 22:24 | disposition home or self-care (01) ==
LOC: ER 20:30
DX: R10.13 Epigastric pain (principal); K29.70 Gastritis, unspecified, without bleeding; R11.0 Nausea; D64.9 Anemia, unspecified; F32.A Depression, unspecified
CPT/HCPCS: 36415; 80053; 81001; 83690; 85025; 99283; J2405; J7030

== ENCOUNTER 2023-01-09 02:50 | Emergency (ER) | payer OTHER ==
[~2023-01-09] VITALS: Ht 149.9 cm; Wt 55.3 kg
[~2023-01-09 02:50] MED LIST changes: +PEPCID20 MG PO
[2023-01-09] MEDS ORDERED: SODIUM CHLORIDE 0.9% 1000ML 1,000 ML IV ONE (03:00)
[2023-01-09] MEDS ORDERED: FAMOTIDINE 20 MG/2 ML VIAL IV STA (03:22)
[2023-01-09] MEDS ORDERED: SUCRALFATE 1 GM TAB PO STA (03:22)
[2023-01-09] MEDS ORDERED: MAGNESIUM/ALUMINUM/SIMETHICONE 30 ML UDC PO ONE (03:30)
[2023-01-09 03:45] LABS: BASOPHILS # (AUTO) 0.1 (0.0-0.1); BASOPHILS % 0.7 % (0.0-1.0); EOSINOPHILS # (AUTO) 0.2 (0.0-0.4); EOSINOPHILS % 1.7 % (0.0-6.0); HEMATOCRIT 41.9 % (34.2-44.1); HEMOGLOBIN 13.6 g/dL (12.0-16.0); LYMPHOCYTES % 30.9 % (18.0-39.1); MEAN CORPUSCULAR HEMOGLOBIN 26.4 pg (28-32); MEAN CORPUSCULAR HGB CONC 32.5 g/dL (31-35); MEAN CORPUSCULAR VOLUME 81.2 fL (81-99); MONOCYTES # (AUTO) 0.6 (0.2-0.8); MONOCYTES % 6.3 % (4.4-11.3); NEUTROPHILS # (AUTO) 5.8 (2.1-6.9); NEUTROPHILS % 60.1 % (38.7-80.0); PLATELET COUNT 311 x10e3/uL (140-360); RED BLOOD COUNT 5.16 x10e6/uL (3.6-5.1); RED CELL DISTRIBUTION WIDTH 13.5 % (11.7-14.4)
[2023-01-09 04:04] LABS: ALANINE AMINOTRANSFERASE 43 IU/L (0-55); ALBUMIN 3.5 g/dL (3.5-5.0); ALKALINE PHOSPHATASE 104 IU/L (40-150); ANION GAP 12.5 mmol/L (8-16); BLOOD UREA NITROGEN 12 mg/dL (7-26); BUN/CREATININE RATIO 18 (6-25); CALCIUM 8.2 mg/dL (8.4-10.2); CARBON DIOXIDE 21 mmol/L (22-29); CHLORIDE 108 mmol/L (98-107); CREATININE, SERUM 0.66 mg/dL (0.57-1.11); GLUCOSE 88 mg/dL (74-118); LIPASE 12 U/L (8-78); POTASSIUM 3.5 mmol/L (3.5-5.1); SODIUM 138 mmol/L (136-145)
[2023-01-09 04:05] LABS: CLARITY,URINE CLEAR (CLEAR); COLOR,URINE YELLOW (YELLOW); KETONES,URINE NEGATIVE (NEGATIVE); LEUKOCYTE ESTERASE ,URINE NEGATIVE (NEGATIVE); NITRITE,URINE NEGATIVE (NEGATIVE); PROTEIN,URINE DIPSTICK NEGATIVE (NEGATIVE); URINE UROBILINOGEN 0.2 mg/dL (0.2 - 1)
[2023-01-09 04:09] LABS: BACTERIA,URINE RARE /HPF; EPITHELIAL CELLS,URINE FEW /LPF; RBC,URINE 0-5 /HPF (0-5); WBC,URINE (MAN) 0-5 /HPF (0-5)
[2023-01-09] MEDS ORDERED: IOPAMIDOL 370 MG/ML 100 ML INFUS..BTL INJ ONE (04:27)
[2023-01-09] MEDS ORDERED: ONDANSETRON ODT4 MG PO (05:34)
[2023-01-09] MEDS ORDERED: CARAFATE1 GM PO (05:34)
[2023-01-09 05:46] VITALS: BP 120/83; PULSE 72; RESP 16; TEMP 98.7; O2SAT 100
== END 2023-01-09 05:49 | disposition home or self-care (01) ==
LOC: ER 02:58
DX: R11.2 Nausea with vomiting, unspecified (principal); K29.70 Gastritis, unspecified, without bleeding; R10.13 Epigastric pain; D64.9 Anemia, unspecified; F32.A Depression, unspecified
CPT/HCPCS: 36415; 74177; 80053; 81001; 83690; 84702; 85025; 99284; C9113; J7030; Q9967

== ENCOUNTER 2024-01-16 22:55 | Emergency (ER) | payer SELFPAY ==
[~2024-01-16] VITALS: Ht 149.9 cm; Wt 76.7 kg
[~2024-01-16 22:55] MED LIST changes: +CARAFATE1 GM PO
[2024-01-16 23:00] VITALS: PULSE 87; RESP 18; TEMP 98.5
[2024-01-16] MEDS ORDERED: METRONIDAZOLE500 MG PO (23:25)
[2024-01-16] MEDS ORDERED: CEPHALEXIN500 MG PO (23:25)
[2024-01-16 23:52] VITALS: BP 99/73; PULSE 87; RESP 18; TEMP 98.5; O2SAT 97
== END 2024-01-16 23:52 | disposition home or self-care (01) ==
LOC: FSED 23:02
DX: R30.0 Dysuria (principal); R39.15 Urgency of urination; D64.9 Anemia, unspecified; F32.A Depression, unspecified; F17.210 Nicotine dependence, cigarettes, uncomplicated
CPT/HCPCS: 81003; 99282